=== PATIENT | male | born 1970 | race African-American/Black ===

== ENCOUNTER 2017-05-08 11:10 | Emergency (ER) | payer SELFPAY ==
[2017-05-08 11:53] LABS: #Basophils 0.1 thou/uL (0.0-0.2); #Eosinphils 0.2 thou/uL (0.0-0.7); #Lymphocytes 2.3 thou/uL (1.20-3.40); #Monocytes 0.5 thou/uL (0.11-0.59); #Neutrophils 4.9 thou/uL (1.40-6.50); %Basophils 1.2 % (0.0-1.0); %Eosinophils 2.9 % (0.0-10.0); %Lymphocytes 28.7 % (21.0-51.0); %Monocytes 5.9 % (0.0-10.0); %Neutrophils 61.2 % (42.0-75.0); Hemoglobin 15.2 g/dL (14.0-18.0); Mean Corpuscular HGB CONC 32.8 g/dL (32.0-36.0); Mean Corpuscular Hemoglobin 31.9 pg (27.0-31.0); Mean Corpuscular Volume 97.5 fl (80.0-94.0); Mean Platelet Volume 6.5 fL (7.4-10.4); Platelet Count 278 thou/uL (130-400); RBC Distribution Width 13.2 % (11.5-14.5); Red Blood Cell (RBC) Count 4.77 mill/uL (4.70-6.10)
[2017-05-08 12:14] LABS: ALT (SGPT) 40 U/L (8-55); AST (SGOT) 25 U/L (5-34); Albumin 4.2 g/dL (3.5-5.0); Alkaline Phosphatase 92 U/L (40-150); Anion Gap 14 mmol/L (10-20); BUN (Urea Nitrogen) 16 mg/dL (8.9-20.6); Bilirubin, Total 0.4 mg/dL (0.2-1.2); Calc. Creatinine Clearance 0 mL/min (70-130); Calcium 9.7 mg/dL (7.8-10.44); Carbon Dioxide 20 mmol/L (22-29); Chloride 107 mmol/L (98-107); Estimated GFR-MDRD Greater than 90; Globulin 3.4 g/dL (2.4-3.5); Glucose 90 mg/dL (70-105); Potassium 4.1 mmol/L (3.5-5.1); Protein, Total 7.6 g/dL (6.0-8.3); Sodium 137 mmol/L (136-145)
== END 2017-05-08 13:35 | disposition home or self-care (01) ==
LOC: ERS 11:10
DX: K62.5 Hemorrhage of anus and rectum (principal); Z71.6 Tobacco abuse counseling; F17.200 Nicotine dependence, unspecified, uncomplicated
CPT/HCPCS: 36415; 80053; 82274; 85025; 93005; 99406

== ENCOUNTER 2018-09-28 00:08 | Emergency (ER) | payer SELFPAY ==
[2018-09-28] MEDS ORDERED: Adacel (T-DAP) 0.5 ML SYRINGE ONE ×2 (00:30→00:37)
[2018-09-28] MEDS ORDERED: Lidocaine 1% PF 5 ML VIAL ONE (00:30)
[2018-09-28] MEDS ORDERED: Bacitracin Zinc 1 Packet ONE ×2 (01:21→01:22)
== END 2018-09-28 01:37 | disposition home or self-care (01) ==
LOC: ERS 00:08
DX: S51.811A Laceration without foreign body of right forearm, initial encounter (principal); S60.511A Abrasion of right hand, initial encounter; F17.210 Nicotine dependence, cigarettes, uncomplicated; W01.0XXA Fall on same level from slipping, tripping and stumbling without subsequent striking against object, initial encounter
CPT/HCPCS: 12002; 90471; 90715; J2001

== ENCOUNTER 2018-10-06 17:26 | Emergency (ER) | payer SELFPAY | END 2018-10-06 18:05 | disposition home or self-care (01) | LOC: ERS 17:26 | DX: S51.811D Laceration without foreign body of right forearm, subsequent encounter (principal) ==

== ENCOUNTER 2018-10-25 07:59 | Outpatient (CLI) | payer OTHER ==
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
== END 2018-10-25 08:00 | disposition home or self-care (01) ==
LOC: BICCT 07:59
PROVIDERS: ATTEND Family Medicine
DX: S33.5XXD Sprain of ligaments of lumbar spine, subsequent encounter (principal); S50.12XD Contusion of left forearm, subsequent encounter; S30.1XXA Contusion of abdominal wall, initial encounter
CPT/HCPCS: 74177

== ENCOUNTER 2022-05-04 12:58 | Emergency (ER) | payer BC, OTHER ==
[2022-05-04 13:51] LABS: #Monocytes 0.4 thou/uL (0.11-0.59); #Neutrophils 5.4 thou/uL (1.40-6.50); %Basophils 0.3 % (0.0-1.0); %Eosinophils 0.2 % (0.0-10.0); %Lymphocytes 25.6 % (21.0-51.0); %Monocytes 4.8 % (0.0-10.0); %Neutrophils 69.1 % (42.0-75.0); Hemoglobin 14.3 g/dL (14.0-18.0); Mean Corpuscular HGB CONC 33.4 g/dL (32.0-36.0); Mean Corpuscular Volume 95.9 fl (78.0-98.0); Platelet Count 278 10x3/uL (130-400); Red Blood Cell (RBC) Count 4.46 mill/uL (4.70-6.10); White Blood Cell (WBC) Count 7.9 10x3/uL (4.8-10.8)
[2022-05-04 14:03] LABS: ALT (SGPT) 40 U/L (8-55); AST (SGOT) 24 U/L (5-34); Albumin 4.2 g/dL (3.5-5.0); Alkaline Phosphatase 88 U/L (40-110); Anion Gap 16 mmol/L (10-20); BUN (Urea Nitrogen) 14 mg/dL (8.9-20.6); Bilirubin, Total 0.5 mg/dL (0.2-1.2); Calc. Creatinine Clearance 0 mL/min (70-130); Calcium 9.1 mg/dL (7.8-10.44); Carbon Dioxide 22 mmol/L (22-29); Chloride 104 mmol/L (98-107); Estimated GFR 85; Globulin 3.2 g/dL (2.4-3.5); Glucose 141 mg/dL (70-105); Potassium 3.7 mmol/L (3.5-5.1); Protein, Total 7.4 g/dL (6.0-8.3); Sodium 138 mmol/L (136-145)
== END 2022-05-04 17:22 | disposition home or self-care (01) ==
LOC: ERS 12:58
DX: R07.89 Other chest pain (principal); I10 Essential (primary) hypertension; E78.00 Pure hypercholesterolemia, unspecified; E11.9 Type 2 diabetes mellitus without complications; F17.210 Nicotine dependence, cigarettes, uncomplicated; Z79.899 Other long term (current) drug therapy; Z79.84 Long term (current) use of oral hypoglycemic drugs
CPT/HCPCS: 36415; 71045; 80053; 84443; 84484; 85025; 93005